=== PATIENT | female | born 1995 | race African-American/Black ===

== ENCOUNTER 2018-04-03 10:26 | Emergency (ER) | payer SELFPAY ==
[~2018-04-03] VITALS: Ht 165.1 cm; Wt 87.5 kg
[2018-04-03 11:01] VITALS: Ht 165.1 cm; Wt 87.5 kg
[2018-04-03 11:45] VITALS: BP 128/80
== END 2018-04-03 11:45 | disposition home or self-care (01) ==
LOC: ED 10:26
DX: N89.8 Other specified noninflammatory disorders of vagina (principal); Z86.19 Personal history of other infectious and parasitic diseases
CPT/HCPCS: 87491; 87591; J0696